=== PATIENT | female | born 1990 | race Two or more races ===

== ENCOUNTER 2020-05-18 06:30 | Inpatient (IN) ==
[2020-05-18] MEDS ORDERED: D5LR 1L W PITOCIN 10 UNITS/L 10 UNITS/1,000 ML BAG IV ONE (06:39)
[2020-05-18] MEDS ORDERED: PITOCIN ONE ×2 (06:39→19:41)
[2020-05-18] MEDS ORDERED: D5 1/2 NS 1000 ML 1,000 ML IV ONE (06:39)
[2020-05-18] MEDS ORDERED: D5 1/2 NS 1L W PITOCIN 20 UNITS/L 20 UNITS/1,000 ML BAG IV ONE (06:39)
[2020-05-18] MEDS ORDERED: BETADINE SOLN ONE (06:39)
[2020-05-18] MEDS: D5 1/2 NS 1000 ML 1,000 ML IV SCH ×2 (06:45→19:00)
[2020-05-18] MEDS ORDERED: REGLAN INJ 10 MG VIAL IVP PRN ×2 (06:48→20:49)
[2020-05-18] MEDS ORDERED: PHENERGAN INJ 25 MG IM PRN ×2 (06:48→20:49)
[2020-05-18] MEDS ORDERED: D5LR 1L W PITOCIN 10 UNITS/L 10 UNITS/1,000 ML BAG IV PRN (06:48)
[2020-05-18] MEDS ORDERED: PITOCIN IVP ONE (06:48)
[2020-05-18 07:34] LABS: BILIRUBIN,URINE NEGATIVE (NEGATIVE); BLOOD/HEMOGLOBIN,URINE NEGATIVE (NEGATIVE); GLUCOSE, URINE NEGATIVE (NEGATIVE); KETONES,URINE NEGATIVE (NEGATIVE); LEUKOCYTE ESTERASE ,URINE 2+ (NEGATIVE); NITRITES,URINE POSITIVE (NEGATIVE); PH,URINE 6.5 (5.0 - 8.0); PROTEIN,URINE 1+ (NEGATIVE); UROBILINOGEN,URINE NORMAL (NORMAL)
[2020-05-18 07:41] LABS: BASOPHILS # (AUTO) 0.1 X10^3/uL (0.0-0.1); BASOPHILS % (AUTO) 0.6 % (0.2-1.0); EOSINOPHILS # (AUTO) 0.1 x10^3/uL (0.0-0.2); EOSINOPHILS % (AUTO) 1.3 % (0.9-2.9); HEMATOCRIT 36.5 % (36.0-47.0); HEMOGLOBIN 12.4 g/dL (12.0-16.0); LYMPHOCYTES # (AUTO) 1.9 X10^3/uL (1.3-2.9); LYMPHOCYTES % (AUTO) 20.1 % (21.0-51.0); MEAN CORPUSCULAR HEMOGLOBIN 29.6 pg (27.0-34.0); MEAN CORPUSCULAR VOLUME 87.1 fL (80.0-100.0); MEAN PLATELET VOLUME 7.7 fL (7.4-11.0); MONOCYTES # (AUTO) 0.7 x10^3/uL (0.3-0.8); MONOCYTES % (AUTO) 7.3 % (0.0-13.0); NEUTROPHILS # (AUTO) 6.8 x10^3/uL (2.2-4.8); NEUTROPHILS % (AUTO) 70.7 % (42.0-75.0); PLATELET COUNT 308 X10^3/uL (150.0-450.0); RED BLOOD COUNT 4.19 X10^6/uL (3.5-5.4); RED CELL DISTRIBUTION WIDTH 14.3 % (11.6-16.5); WHITE BLOOD COUNT 9.6 X10^3/uL (3.6-10.0)
[2020-05-18 07:43] LABS: BLOOD UREA NITROGEN 6 mg/dL (7-18); CALCIUM 8.8 mg/dL (8.5-10.1); CARBON DIOXIDE 25.3 mmol/L (21-32); CHLORIDE 103 mmol/L (98-107); CREATININE 0.62 mg/dL (0.55-1.02); SODIUM 137 mmol/L (136-145); eGFR NON BLACK RACES > 60 (>60)
[2020-05-18 07:47] LABS: APPEARANCE,URINE CLEAR (CLEAR); BACTERIA,URINE 2+ /HPF (NEGATIVE); COLOR,URINE DARK YELLOW (YELLOW); SQUAMOUS EPITHELIAL CELL,UR MANY /HPF (NEGATIVE)
[2020-05-18] MEDS: STADOL INJ IVP PRN ×2 (13:20→16:15)
[2020-05-18] MEDS: STADOL INJ ONE ×2 (13:20→13:38)
[2020-05-18] MEDS ORDERED: LR 1000 ML IV 1,000 ML IV ONE ×3 (14:26→19:21)
[2020-05-18] MEDS ORDERED: STADOL INJ ONE (16:05)
[2020-05-18] MEDS ORDERED: DILAUDID INJ ONE (19:20)
[2020-05-18] MEDS ORDERED: XYLOCAINE 1 % (PLAIN) ONE (19:20)
[2020-05-18] MEDS ORDERED: ANCEF 1 GRAM IV PREMIX* 2 G/100 ML BAG IV ONE (19:21)
[2020-05-18] MEDS ORDERED: MARCAINE SPINAL ONE (19:41)
[2020-05-18] MEDS ORDERED: EPHEDRINE SULFATE INJ ONE (19:41)
[2020-05-18] MEDS ORDERED: TORADOL 30 MG VIAL ONE (19:41)
[2020-05-18] MEDS ORDERED: REGLAN INJ 10 MG VIAL ONE (19:41)
[2020-05-18] MEDS ORDERED: ZOFRAN INJ 4 MG VIAL ONE (19:41)
[2020-05-18] MEDS ORDERED: DIPRIVAN VIAL ONE (19:41)
[2020-05-18] MEDS ORDERED: VERSED ONE (19:41)
[2020-05-18] MEDS: D5 1/2 NS 1000 ML 1,000 ML IV ONE ×2 (19:51→20:21)
[2020-05-18] MEDS ORDERED: BENADRYL INJ 50 MG VIAL IVP PRN (20:49)
[2020-05-18] MEDS ORDERED: ZOFRAN INJ 4 MG VIAL IVP PRN ×2 (20:49→21:12)
[2020-05-18] MEDS ORDERED: ADACEL or BOOSTRIX TDaP VACCINE IM ONE (21:12)
[2020-05-18] MEDS ORDERED: TORADOL 30 MG VIAL IVP PRN (21:12)
[2020-05-18] MEDS ORDERED: PERCOCET TAB 5/325 MG PO PRN (21:12)
[2020-05-18] MEDS ORDERED: MYLICON TAB 80 MG CHEW PO PRN (21:12)
[2020-05-18] MEDS ORDERED: D5 1/2 NS 1000 ML 1,000 ML with PITOCIN 20 UNITS IV SCH ×2 (21:12)
[2020-05-18] MEDS ORDERED: NARCAN INJ IVP PRN (21:12)
[2020-05-19 05:30] LABS: HEMATOCRIT 37.4 % (36.0-47.0); HEMOGLOBIN 12.1 g/dL (12.0-16.0)
[2020-05-19] MEDS: PRENATAL PLUS PO SCH (08:59)
[2020-05-19] MEDS: MOTRIN TAB 800 MG PO PRN ×2 (09:00→20:13)
[2020-05-19] MEDS: PERCOCET TAB 5/325 MG PO PRN (21:26)
[2020-05-20] MEDS: PRENATAL PLUS PO SCH (09:08)
[2020-05-20] MEDS: PERCOCET TAB 5/325 MG PO PRN (09:10)
[2020-05-20 12:15] VITALS: BP 109/62
== END 2020-05-20 12:45 | disposition home or self-care (01) | DRG 785 ==
LOC: LD 06:30 → MED/SURG 20:52
PROVIDERS: ADMIT Obstetrics & Gynecology Obstetrics; ATTEND Obstetrics & Gynecology Obstetrics
DX: Z37.0 Single live birth; Z30.2 Encounter for sterilization; Z3A.39 39 weeks gestation of pregnancy; O75.89 Other specified complications of labor and delivery; O61.8 Other failed induction of labor; B96.29 Other Escherichia coli [E. coli] as the cause of diseases classified elsewhere; O62.0 Primary inadequate contractions